=== PATIENT | male | born 1980 | race Caucasian/White ===

== ENCOUNTER → 2019-07-12 | Outpatient (CLI) | payer OTHER ==
--- NOTE | 2019-07-12 09:50 | RAD ---
EXAM: CHEST 2 VIEWS. HISTORY: Xiphoid pain. COMPARISON: None. FINDINGS: Frontal and lateral views of the chest are obtained. The sternum and xiphoid process are unremarkable on the lateral projection. There are no confluent infiltrates. There is no pneumothorax or pleural effusion. The heart is not enlarged. IMPRESSION: 1. No clear abnormality is appreciated at the xiphoid process as seen on the lateral radiograph. 2. No confluent infiltrates. Electronically signed by: Terrie Salcido MD (07/12/2019 9:47 AM) [id number]
== END ==
LOC: RAD 09:24
PROVIDERS: ATTEND Family Medicine
DX: M94.9 Disorder of cartilage, unspecified (principal)
CPT/HCPCS: 71046

== ENCOUNTER 2019-09-26 14:19 | Emergency (ER) | payer OTHER ==
[~2019-09-26] VITALS: Ht 175.3 cm; Wt 80.5 kg
--- NOTE | 2019-09-26 14:45 | PHYS DOC ---
Past History Past Medical History: Anxiety, GERD Smoking: Quit Greater Than 1 Year Alcohol Use: None Drug Use: Marijuana General Adult EDM: Chief Complaint: CHEST PAIN HPI: HPI: Patient is a 39-year-old male who presents to the emergency department for upper abdominal pain, in his right upper quadrant which radiates to his back which has been waxing and waning for the past few weeks. He also has some right-sided chest discomfort which is pleuritic, but they may be the same issue. He has not had any nausea, vomiting, or diarrhea. He has been diagnosed with GERD and he has taken an acid medication without significant improvement in his symptoms. He has not had any fevers or chills, shortness of breath, exertional chest discomfort, dizziness or lightheadedness. There are no alleviating or exacerbating factors to his symptoms. He has no family history of premature onset coronary artery disease. Review of Systems: Review of Systems: Constitutional: Denies fever or chills Eyes: Denies change in visual acuity HENT: Denies nasal congestion or sore throat Respiratory: Denies cough or shortness of breath Cardiovascular: Denies orthopnea or edema GI: Denies nausea, vomiting, bloody stools or diarrhea : Denies dysuria Musculoskeletal: Denies back pain or joint pain Integument: Denies rash Neurologic: Denies headache, focal weakness or sensory changes Endocrine: Denies polyuria or polydipsia Lymphatic: Denies swollen glands Psychiatric: Denies depression or anxiety Heart Score: Risk Factors: Risk Factors: DM, Current or recent (<one month) smoker, HTN, HLP, family history of CAD, obesity. Risk Scores: Score 0 - 3: 2.5% MACE over next 6 weeks - Discharge Home Score 4 - 6: 20.3% MACE over next 6 weeks - Admit for Clinical Observation Score 7 - 10: 72.7% MACE over next 6 weeks - Early Invasive Strategies Allergies: Allergies: Allergies Coded Allergies Type Severity Reaction Last Updated Verified No Known Drug Allergies 09/26/19 No Physical Exam: PE: PHYSICAL EXAM: CONSTITUTIONAL: Well developed, well nourished HEAD: normocephalic, atraumatic EENT: PERRL, EOMI. Conjunctivae normal color, sclerae non-icteric; moist mucous membranes. NECK: Supple, non-tender; no meningismus. LUNGS: Lungs CTA, breathing even and unlabored. Normal air movement. HEART: Regular rate and rhythm, no murmur CHEST: No deformity; non-tender ABDOMEN: The abdomen is soft, there is very mild right upper quadrant tenderness to palpation without rebound or guarding, the remainder the abdomen is soft and non-tender, no masses or bruits. EXTREM: Normal ROM; no deformity, no calf tenderness. Normal pulses palpable in all extremities. There is no pedal edema. SKIN: No rash; no diaphoresis NEURO: Alert; normal speech and cognition; CN's grossly intact; strength grossly intact without focal deficit. BACK: No CVA TTP. PSYCHIATRIC: The patient is moderately anxious. Current Patient Data: Labs: Laboratory Tests Test 09/26/19 14:32 White Blood Count 6.7 x10^3/uL Red Blood Count 5.11 x10^6/uL Hemoglobin 15.9 g/dL Hematocrit 45.8 % Mean Corpuscular Volume 90 fL Mean Corpuscular Hemoglobin 31 pg Mean Corpuscular Hemoglobin Concent 35 g/dL Red Cell Distribution Width 12.9 % Platelet Count 295 x10^3/uL Neutrophils (%) (Auto) 59 % Lymphocytes (%) (Auto) 30 % Monocytes (%) (Auto) 9 % Eosinophils (%) (Auto) 1 % Basophils (%) (Auto) 1 % Neutrophils # (Auto) 3.9 x10^3uL Lymphocytes # (Auto) 2.0 x10^3/uL Monocytes # (Auto) 0.6 x10^3/uL Eosinophils # (Auto) 0.1 x10^3/uL Basophils # (Auto) 0.1 x10^3/uL D-Dimer (Becca) 0.47 mg/L Sodium Level 138 mmol/L Potassium Level 3.9 mmol/L Chloride Level 102 mmol/L Carbon Dioxide Level 25 mmol/L Anion Gap 11 Blood Urea Nitrogen 15 mg/dL Creatinine 1.3 mg/dL Estimated GFR (Cockcroft-Gault) 60.8 BUN/Creatinine Ratio 12 Glucose Level 111 mg/dL Calcium Level 9.3 mg/dL Total Bilirubin 0.5 mg/dL Aspartate Amino Transf (AST/SGOT) 22 U/L Alanine Aminotransferase (ALT/SGPT) 24 U/L Alkaline Phosphatase 60 U/L Troponin I Quantitative < 0.017 ng/mL Total Protein 7.8 g/dL Albumin 4.3 g/dL Albumin/Globulin Ratio 1.2 Lipase 122 U/L EKG: EKG: Normal sinus rhythm with a normal rate, normal axis, normal intervals, there are no acute ischemic ST/T changes. Radiology/Procedures: Radiology/Procedures: PROCEDURE: PORTABLE CHEST 1V Examination: PORTABLE CHEST 1V History: Reason: cp / Spl. Instructions: / History: Comparison/Correlation: None Findings: Upright frontal view chest was obtained. Heart size and pulmonary vessels are normal. No infiltrate or pleural effusion. No pneumothorax. Bony structures are unremarkable. Impression: No active disease. [] PROCEDURE: ABDOMEN LTD Examination: ABDOMEN LTD History: Reason: RUQ Pain / Spl. Instructions: / History: Comparison/Correlation: None Findings: Ultrasound examination of the right upper quadrant was performed. Gallbladder is normal. No cholelithiasis. Liver length is 15.6 similar longitudinal. Normal hepatic echotexture. Normal common bile duct is evident. Portal venous flow is normal. Right kidney measures 11.1 longitudinal. No right hydronephrosis. Pancreas is obscured by bowel gas. Inferior vena cava is not well visualized. Partially visualized inferior vena cava is unremarkable. Impression: Normal right upper quadrant ultrasound exam. Course & Med Decision Making: Course & Med Decision Making Patient remains stable. I discussed test results, the need for close follow-up, for further evaluation, and return precautions. Pertinent Labs and Imaging studies reviewed. (See chart for details) [] Dragon Disclaimer: Dragon Disclaimer: This electronic medical record was generated, in whole or in part, using a voice recognition dictation system. Departure Departure: Impression: Primary Impression: Right upper quadrant abdominal pain Additional Impression: Atypical chest pain Disposition: HOME/RESIDENCE PRIOR TO ADM Condition: STABLE Referrals: MICHEL HUANG MD (PCP) Patient Instructions: Abdominal Pain (Nonspecific), Chest Pain (Nonspecific), Peptic Ulcer Disease Additional Instructions: Follow-up with GI for further evaluation, call [phone] to schedule follow- up appointment. Scripts Omeprazole (OMEPRAZOLE) 20 Mg Capsule.dr 1 CAP PO DAILY for -, #30 CAP 0 Refills Prov: VANESSA SAHA MD 09/26/19 Justification of Admission: Justification of Admission: Justification of Admission Dx: N/A VANESSA SAHA MD Sep 26, 2019 14:44
--- NOTE | 2019-09-26 14:55 | RAD ---
Examination: PORTABLE CHEST 1V History: Reason: cp / Spl. Instructions: / History: Comparison/Correlation: None Findings: Upright frontal view chest was obtained. Heart size and pulmonary vessels are normal. No infiltrate or pleural effusion. No pneumothorax. Bony structures are unremarkable. Impression: No active disease. Electronically signed by: Ray Rizo MD (09/26/2019 2:51 PM) [id number]
[2019-09-26 15:03] LABS: CALCIUM 9.3 mg/dL (8.5-10.1); CREATININE 1.3 mg/dL (0.7-1.3); GFR 60.8; POTASSIUM 3.9 mmol/L (3.5-5.1)
[2019-09-26 15:05] LABS: BASO # 0.1 x10^3/uL (0.0-0.2); BASO % 1 % (0-3); EOS # 0.1 x10^3/uL (0.0-0.7); EOS % 1 % (0-3); HEMATOCRIT 45.8 % (39.0-53.0); HEMOGLOBIN 15.9 g/dL (13.0-17.5); LYMPH % 30 % (24-48); MEAN CORPUSCULAR HEMOGLOBIN 31 pg (25-35); MEAN CORPUSCULAR HGB CONC 35 g/dL (31-37); MEAN CORPUSCULAR VOLUME 90 fL (79-100); MONO # 0.6 x10^3/uL (0.0-1.1); MONO % 9 % (0-9); NEUT # 3.9 x10^3uL (1.8-7.7); NEUT % 59 % (31-73); PLATELET COUNT 295 x10^3/uL (140-400); RED BLOOD COUNT 5.11 x10^6/uL (4.30-5.70); RED CELL DISTRIBUTION WIDTH 12.9 % (11.5-14.5); WHITE BLOOD COUNT 6.7 x10^3/uL (4.0-11.0)
[2019-09-26 15:10] LABS: ALBUMIN 4.3 g/dL (3.4-5.0); ALBUMIN/GLOBULIN RATIO 1.2 (1.0-1.7); TOTAL BILIRUBIN 0.5 mg/dL (0.2-1.0); TOTAL PROTEIN 7.8 g/dL (6.4-8.2)
--- NOTE | 2019-09-26 15:55 | RAD ---
Examination: ABDOMEN LTD History: Reason: RUQ Pain / Spl. Instructions: / History: Comparison/Correlation: None Findings: Ultrasound examination of the right upper quadrant was performed. Gallbladder is normal. No cholelithiasis. Liver length is 15.6 similar longitudinal. Normal hepatic echotexture. Normal common bile duct is evident. Portal venous flow is normal. Right kidney measures 11.1 longitudinal. No right hydronephrosis. Pancreas is obscured by bowel gas. Inferior vena cava is not well visualized. Partially visualized inferior vena cava is unremarkable. Impression: Normal right upper quadrant ultrasound exam. Electronically signed by: Ray Rizo MD (09/26/2019 3:52 PM) [id number]
[2019-09-26] MEDS ORDERED: OMEP20CA16 PO (16:03)
--- NOTE | 2019-09-26 16:08 | EKG ---
[address] [address] Test Date: 2019-09-26 Test Time: 14:23:48 Pat Name: AUTUMN GREEN Department: Room: Gender: M Whitesmith: : 1980 Requested By: VANESSA SAHA Order Number: [id number] Reading MD: Measurements Intervals [place] Rate: 101 P: 24 IA: 142 QRS: 68 QRSD: 80 T: 65 QT: 322 QTc: 424 Interpretive Statements SINUS TACHYCARDIA S1,S2,S3 PATTERN OTHERWISE NORMAL ECG RI6.02 No previous ECG available for comparison
[2019-09-26 16:13] VITALS: BP 125/79
== END 2019-09-26 16:19 | disposition home or self-care (01) ==
LOC: ER 14:19
DX: R10.11 Right upper quadrant pain (principal); R07.89 Other chest pain; F41.9 Anxiety disorder, unspecified; K21.9 Gastro-esophageal reflux disease without esophagitis; Z87.891 Personal history of nicotine dependence
CPT/HCPCS: 36415; 71045; 76705; 80053; 83690; 84484; 85025; 85379; 93005; 99285